=== PATIENT | male | born 1935 | race Caucasian/White ===

== ENCOUNTER 2018-12-02 22:28 | Outpatient (REF) | payer MEDICARE, SELFPAY ==
[2018-12-02 22:03] LABS: Anion Gap 10.9 mmol/L (3-11); BUN 21 mg/dL (7-18); CO2 25.1 mmol/L (21.0-32.0); CREATININE 1.14 mg/dL (0.70-1.30); Calcium 8.9 mg/dL (8.5-10.1); Chloride 103 mmol/L (98-107); Glucose 97 mg/dL (70-100); Sodium 139 mmol/L (136-145)
== END 2018-12-02 22:48 ==
LOC: NCHCN 22:28
PROVIDERS: PCP Internal Medicine; Visit Provider Internal Medicine
DX: I10 Essential (primary) hypertension (principal)
CPT/HCPCS: 80048

== ENCOUNTER 2020-05-30 21:57 | Outpatient (REF) | payer MEDICARE, SELFPAY ==
[2020-05-30 21:20] LABS: ALT 21 U/L (16-63); AST 15 U/L (15-37); Alkaline Phosphatase 70 U/L (46-116); Anion Gap 4.1 mmol/L (3-11); BUN 16 mg/dL (7-18); Bilirubin, Total 1.8 mg/dL (0.2-1.0); CO2 30.9 mmol/L (21.0-32.0); CREATININE 1.15 mg/dL (0.70-1.30); Calculated LDL 88 mg/dL (<100); Chloride 105 mmol/L (98-107); Cholesterol 185 mg/dL (<200); Glucose 89 mg/dL (74-106); HDL Cholesterol 79 mg/dL (40-60); Sodium 140 mmol/L (136-145); Total Protein 6.8 g/dL (6.4-8.2); Triglyceride 91 mg/dL (<150)
== END 2020-05-30 22:17 ==
LOC: NCHCN 21:57
PROVIDERS: PCP Internal Medicine; Visit Provider Internal Medicine
DX: I10 Essential (primary) hypertension (principal); Z13.6 Encounter for screening for cardiovascular disorders
CPT/HCPCS: 80053; 80061

== ENCOUNTER 2021-05-30 09:58 | Outpatient (REF) | payer MEDICARE, SELFPAY ==
[2021-05-30 14:39] LABS: Anion Gap 7.5 mmol/L (3-11); BUN 19 mg/dL (7-18); CO2 29.5 mmol/L (21.0-32.0); CREATININE 1.3 mg/dL (0.70-1.30); Calcium 9.5 mg/dL (8.5-10.1); Chloride 105 mmol/L (98-107); Estimated GFR 52.59 (mL/min/1.73m2); Glucose 106 mg/dL (74-106); Potassium 4.2 mmol/L (3.5-5.1); Sodium 142 mmol/L (136-145)
== END 2021-05-30 09:59 | disposition home or self-care (01) ==
LOC: NCHCN 09:58
PROVIDERS: PCP Internal Medicine; Visit Provider Internal Medicine
DX: I10 Essential (primary) hypertension (principal)
CPT/HCPCS: 80048

== ENCOUNTER 2022-06-28 15:13 | Outpatient (REF) | payer MEDICARE, SELFPAY ==
[2022-06-28 15:43] LABS: HCT 35.6 % (40.0-50.0); HGB 11.5 g/dL (13.5-17.5); MCH 29.3 pg (27.0-33.0); MCHC 32.3 % (32.0-36.0); MCV 91 fL (80-95); Platelet Count 247 10^3/uL (130-400); RBC 3.92 10^6/uL (4.36-5.78); RDW 13.1 % (11.8-14.1); RDW-SD 43.2 fL; WBC 5.11 10^3/uL (4.4-10.8)
[2022-06-28 16:49] LABS: ALT 25 U/L (16-63); AST 21 U/L (15-37); Albumin 3.4 g/dL (3.4-5.0); Alkaline Phosphatase 80 U/L (46-116); Anion Gap 6.3 mmol/L (3-11); BUN 14 mg/dL (7-18); Bilirubin, Total 1.2 mg/dL (0.2-1.0); CO2 25.7 mmol/L (21.0-32.0); CREATININE 1.1 mg/dL (0.70-1.30); Calcium 8.9 mg/dL (8.5-10.1); Chloride 107 mmol/L (98-107); Estimated GFR 65.79 (mL/min/1.73m2); Glucose 90 mg/dL (74-106); Potassium 4.5 mmol/L (3.5-5.1); Sodium 139 mmol/L (136-145); Total Protein 6.4 g/dL (6.4-8.2); Vitamin B12 607 pg/mL (193-986)
== END 2022-06-28 15:14 | disposition home or self-care (01) ==
LOC: NCHCN 15:13
PROVIDERS: PCP Internal Medicine; Visit Provider Internal Medicine
DX: I10 Essential (primary) hypertension (principal); R29.6 Repeated falls; R26.89 Other abnormalities of gait and mobility
CPT/HCPCS: 80053; 85027; 82607

== ENCOUNTER 2023-09-23 10:21 | Outpatient (REF) | payer OTHER, SELFPAY ==
--- OUTSIDE RECORDS SUMMARY | 2023-09-23 10:24 | XMS_ITS | CCD ---
Author Name Unknown Address [address] [place] [address] [phone] Organization Unknown Address [address] [place] [address] [phone] Care Team Providers Care Retail Sales Specialist Name Role Phone VANDANA MENDEZ Attending Physician [phone] KWAKU JIMENEZ Er Physician [phone] ROSA Barney Registered Nurse [phone] CARMELA Estrada Registered Nurse [phone] Vital Signs Vital Sign Value Unit Date/Time Recent/Initial ? BP Systolic 147 mmHg 05/31/2022 07:47 Initial VS BP Diastolic 77 mmHg 05/31/2022 07:47 Initia l VS Respiratory Rate 16 bpm 05/31/2022 07:47 In itial VS Heart Rate 66 bpm 05/31/2022 07:47 Initial VS O2 % BldC Oximetry 95 % 05/31/2022 07:47 Initial VS Body Temperature 36.9 degrees 05/31/2022 07:47 In itial VS BMI (Body Mass Index) 25.85 kg/m^2 05/31/2022 07: 54 Initial VS Weight Measured 170 lbs 05/31/2022 07:54 Ini tial VS Height 68 in 05/31/2022 07:54 Initial VS BSA (Body Surface Area) 1.92 m^2 05/31/2022 0 7:54 Initial VS BP Systolic 145 mmHg 05/31/2022 12:15 Most Re cent VS BP Diastolic 78 mmHg 05/31/2022 12:15 Most R ecent VS Respiratory Rate 19 bpm 05/31/2022 12:[address] Recent VS Heart Rate 70 bpm 05/31/2022 12:15 Most Rec ent VS O2 % BldC Oximetry 96 % 05/31/2022 12:15 Most Recent VS Body Temperature 36.9 degrees 05/31/2022 12:[address] Recent VS Allergies Allergy Code Allergy Type Reaction Status No Known Drug Allergies 0 No known drug allergies Active Procedures Unknown or Not Available. History of Immunizations Unknown or Not Available. Problems Problem Code Start Date Resolved Date Status NONINF GASTROENTERIT NEC 5589 Active MS [id number] Active HTN [id number] Active Results Unknown or Not Available. Active Medications Medications Administered During Visit Medication Dose Units Frequency Route Date/Time of Last Dose HYDROmorphone TABLET: 2MG 2 MG X1 PO 05/31/2022 08:48 Encounters Encounter Diagnosis Diagnosis Code Start Date Unspecified fracture of ster num, initial encounter for closed fracture [id number] 05/31/2022 Social History Smoking Status Code Start Date End Date Former smoker [id number] Patient Decision Aids Unknown or Not Available. Discharge Instructions You were admitted to [facility] on 05/31/2022 07:37 with a principal diagnosis of Unspecified fracture of sternum, initial encounter for closed fracture You were discharged from [facility] on 05/31/2022 12:30 Should you have any questions prior to discharge, please contact a member of your healthcare team. If you have left the hospital and have any questions, please contact your primary care physician. Chief Complaint and Reason For Visit Chief Complaint Date of Onset RIB PAIN Function Status Unknown or Not Available. Plan of Care Unknown or Not Available. Referral/Transition of Care Unknown or Not Available.
[2023-09-23 14:30] LABS: HCT 38.4 % (40.0-50.0); HGB 12.6 g/dL (13.5-17.5); MCHC 32.8 % (32.0-36.0); MCV 88 fL (80-95); MPV 11.6 fL (8.0-11.0); Platelet Count 229 10^3/uL (130-400); RBC 4.35 10^6/uL (4.36-5.78); RDW 13.6 % (11.8-14.1); RDW-SD 44.4 fL; WBC 6.58 10^3/uL (4.4-10.8)
[2023-09-23 14:58] LABS: Anion Gap 11.7 mmol/L (3-11); BUN 22 mg/dL (7-18); CO2 25.3 mmol/L (21.0-32.0); CREATININE 1.3 mg/dL (0.70-1.30); Calcium 10.1 mg/dL (8.5-10.1); Chloride 106 mmol/L (98-107); Glucose 105 mg/dL (74-106); Sodium 143 mmol/L (136-145)
== END 2023-09-23 10:22 | disposition home or self-care (01) ==
LOC: NCHCN 10:21
PROVIDERS: PCP Internal Medicine; Visit Provider Internal Medicine
DX: D64.9 Anemia, unspecified (principal); I10 Essential (primary) hypertension
CPT/HCPCS: 80048; 85027

== ENCOUNTER 2024-04-02 15:21 | Outpatient (REF) | payer OTHER, SELFPAY ==
[2024-04-02 21:26] LABS: HCT 35.9 % (40.0-50.0); HGB 11.9 g/dL (13.5-17.5); MCH 30.2 pg (27.0-33.0); MCHC 33.1 % (32.0-36.0); MCV 91 fL (80-95); MPV 11.7 fL (8.0-11.0); Platelet Count 198 10^3/uL (130-400); RBC 3.94 10^6/uL (4.36-5.78); RDW 12.8 % (11.8-14.1); RDW-SD 42.3 fL; WBC 4.83 10^3/uL (4.4-10.8)
[2024-04-02 21:44] LABS: Iron 68 ug/dL (65-175); Total Iron Binding Capacity 279 ug/dL (250-450); Transferrin Sat 24 % (20-55)
[2024-04-02 22:11] LABS: ALT 20 U/L (16-63); AST 18 U/L (15-37); Albumin 3.8 g/dL (3.4-5.0); Alkaline Phosphatase 72 U/L (46-116); Anion Gap 7.7 mmol/L (3-11); BUN 24 mg/dL (7-18); Bilirubin, Total 2.09 mg/dL (0.2-1.0); CO2 28.3 mmol/L (21.0-32.0); CREATININE 1.3 mg/dL (0.70-1.30); Calcium 9.7 mg/dL (8.5-10.1); Chloride 105 mmol/L (98-107); Estimated GFR 53.17 (mL/min/1.73m2); Ferritin 174 ng/mL (26-388); Glucose 83 mg/dL (74-106); Potassium 3.7 mmol/L (3.5-5.1); Sodium 141 mmol/L (136-145); Total Protein 6.7 g/dL (6.4-8.2); Vitamin B12 548 pg/mL (193-986)
== END 2024-04-02 15:22 | disposition home or self-care (01) ==
LOC: NCHCN 15:21
PROVIDERS: PCP Internal Medicine; Visit Provider Internal Medicine
DX: N18.30 Chronic kidney disease, stage 3 unspecified (principal)
CPT/HCPCS: 80053; 85027; 82607; 82728; 83540; 83550

== ENCOUNTER 2024-10-01 22:28 | Outpatient (REF) | payer MEDICARE, SELFPAY ==
[2024-10-01 21:29] LABS: HCT 35.7 % (40.0-50.0); HGB 11.7 g/dL (13.5-17.5); MCH 30.3 pg (27.0-33.0); MCHC 32.8 % (32.0-36.0); MCV 93 fL (80-95); MPV 11.8 fL (8.0-11.0); Platelet Count 198 10^3/uL (130-400); RBC 3.86 10^6/uL (4.36-5.78); RDW 13.5 % (11.8-14.1); RDW-SD 45.6 fL; WBC 4.92 10^3/uL (4.4-10.8)
[2024-10-01 22:01] LABS: ALT 17 U/L (16-63); AST 25 U/L (15-37); Albumin 3.9 g/dL (3.4-5.0); Alkaline Phosphatase 70 U/L (46-116); Anion Gap 6.7 mmol/L (3-11); BUN 22 mg/dL (7-18); Bilirubin, Total 1.97 mg/dL (0.2-1.0); CO2 28.3 mmol/L (21.0-32.0); CREATININE 1.4 mg/dL (0.70-1.30); Calcium 9.5 mg/dL (8.5-10.1); Chloride 109 mmol/L (98-107); Estimated GFR 48.65 (mL/min/1.73m2); Glucose 102 mg/dL (74-106); Potassium 4.2 mmol/L (3.5-5.1); Sodium 144 mmol/L (136-145); Total Protein 6.8 g/dL (6.4-8.2); Vitamin D 25 Total 36.7 ng/mL (30-100)
== END 2024-10-01 22:29 | disposition home or self-care (01) ==
LOC: NCHCN 22:28
PROVIDERS: PCP Internal Medicine; Visit Provider Internal Medicine
DX: E55.9 Vitamin D deficiency, unspecified (principal); I10 Essential (primary) hypertension
CPT/HCPCS: 80053; 82306; 85027

== ENCOUNTER 2025-03-30 12:06 | Outpatient (REF) | payer MEDICARE, SELFPAY ==
[2025-03-30 14:54] LABS: HCT 36.4 % (40.0-50.0); HGB 11.7 g/dL (13.5-17.5); MCH 29.5 pg (27.0-33.0); MCHC 32.1 % (32.0-36.0); MCV 92 fL (80-95); MPV 11.4 fL (8.0-11.0); Platelet Count 196 10^3/uL (130-400); RBC 3.97 10^6/uL (4.36-5.78); RDW 13.1 % (11.8-14.1); RDW-SD 43.7 fL; WBC 5.45 10^3/uL (4.4-10.8)
[2025-03-30 15:06] LABS: ALT 22 U/L (16-63); AST 20 U/L (15-37); Albumin 3.7 g/dL (3.4-5.0); Alkaline Phosphatase 74 U/L (46-116); Anion Gap 4.4 mmol/L (3-11); BUN 20 mg/dL (7-18); Bilirubin, Total 1.7 mg/dL (0.2-1.0); CO2 30.6 mmol/L (21.0-32.0); Calcium 8.9 mg/dL (8.5-10.1); Chloride 108 mmol/L (98-107); Estimated GFR 58.17 (mL/min/1.73m2); Glucose 91 mg/dL (74-106); Potassium 4.1 mmol/L (3.5-5.1); Sodium 143 mmol/L (136-145); Total Protein 6.6 g/dL (6.4-8.2)
== END 2025-03-30 12:07 | disposition home or self-care (01) ==
LOC: NCHCN 12:06
PROVIDERS: PCP Internal Medicine; Visit Provider Internal Medicine
DX: N18.30 Chronic kidney disease, stage 3 unspecified (principal)
CPT/HCPCS: 80053; 85027